=== PATIENT | male | born 1945 | race Caucasian/White ===

== ENCOUNTER → 2020-10-09 | Outpatient (CLI) | payer MEDICARE ==
[~2020-10-09] MED LIST: ECOTRIN81 MG PO; FLOMAX 0.4 MG0.4 MG PO; LISINOPRIL10 MG PO; LORTAB 5-325 M1 EACH PO; PANTOPRAZOLE SO40 MG PO; POTASSIUM CHLO20 ME1 PO; POTASSIUM CHLO20 ME2 PO; PROTONIX 40 MG40 M1 PO; QUETIAPINE FUM100 MG PO; SPIRIVA18 MCG INH; THERA-M CAPLET1 EAC1 PO; VITAMIN B1 PO
== END ==
LOC: CT 09:30 → KOH-I 10:14
DX: F17.210 Nicotine dependence, cigarettes, uncomplicated (principal); I71.2 Thoracic aortic aneurysm, without rupture
CPT/HCPCS: 71271

== ENCOUNTER 2020-11-10 19:00 | Inpatient (IN) | payer MEDICARE ==
[~2020-11-10] VITALS: Ht 182.9 cm; Wt 88.5 kg
[2020-11-10 19:41] LABS: HEMOGLOBIN 15.7 gm/dl (14.0-17.5); RED BLOOD COUNT 4.82 M/UL (4.20-5.50); WHITE BLOOD COUNT 27.4 K/UL (4.5-11.0)
[2020-11-10 19:59] LABS: BUN/CREATININE RATIO 23 (0-10)
[2020-11-11 07:12] LABS: RED BLOOD COUNT 4.38 M/UL (4.20-5.50); WHITE BLOOD COUNT 26.7 K/UL (4.5-11.0)
[2020-11-11 07:13] LABS: HEMOGLOBIN 13.2 gm/dl (14.0-17.5)
[2020-11-11 07:28] LABS: BUN/CREATININE RATIO 25 (0-10)
--- NOTE | 2020-11-11 10:48 | NUR ---
PT DIP AND FENTANYL STOPPED AT [address] STEVENS ORDER TO PREPARE FOR EXTUBATION. PT RESPONDED TO COMMANDS AND WAS VERBALLY AND PHYSICALLY APPROPRIATE WITH ORDERS. ABG WAS DRAWN BY RT. RESULTS WERE GOOD. PROCEEDED WITH BESIDE EXTUBATION AT 1030. PT TOLERATED WELL. SUCTIONED BY MOUTH. PATIENT A/O AND TALKING TO RT AND RN. OS NASAL CANNULA PLACED ON PATIENT AT 2 LITERS. PT O2 SAT WAS REMAINING AT 97%. ASSESSMENT WNL. WCTM.
--- NOTE | 2020-11-11 16:00 | NUR ---
REPORT CALLED TO [facility] ON PCU. PT HAS A BED AND IS TO BE TRANSFERRED TO [facility]– [place].
[2020-11-12 05:17] LABS: HEMOGLOBIN 14.1 gm/dl (14.0-17.5); RED BLOOD COUNT 4.46 M/UL (4.20-5.50); WHITE BLOOD COUNT 20.3 K/UL (4.5-11.0)
[2020-11-12 06:12] LABS: BUN/CREATININE RATIO 25 (0-10)
--- NOTE | 2020-11-12 15:41 | NUR ---
1000: PATIENT DEEP NT SUCTIONED PER DR. STEVENS REQUEST. NOT MUCH WAS SUCTIONED AND AND WEB GRAPHIC DESIGNER NOTIFIED. PATIENT EDUCATED ON SELF SUCTIONING AFTER BREAKING UP SECREATIONS AND COUGHING. PATIENT REFUSES TO DEEP BREATH, COUGH AND LET ME TURN HIM DUE TO PAIN IN THE ABDOMEN AND HE HAS BEEN EDUCATED ON THE EFFECTS AND POSSIBILITY OF PNEUMONIA. PATIENT UNDERSTANDS RISKS AND VERBALIZES UNDERSTANDING. I WILL CONTINUE TO EDUCATE PATIENT ON THE RISKS.
[2020-11-13 04:36] LABS: HEMOGLOBIN 13.3 gm/dl (14.0-17.5); RED BLOOD COUNT 4.4 M/UL (4.20-5.50); WHITE BLOOD COUNT 17.4 K/UL (4.5-11.0)
[2020-11-13 04:50] LABS: BUN/CREATININE RATIO 23 (0-10)
[2020-11-14 05:38] LABS: HEMOGLOBIN 12.6 gm/dl (14.0-17.5); RED BLOOD COUNT 4.02 M/UL (4.20-5.50); WHITE BLOOD COUNT 15.3 K/UL (4.5-11.0)
[2020-11-14 05:55] LABS: BUN/CREATININE RATIO 20 (0-10)
[2020-11-15 05:28] LABS: HEMOGLOBIN 12.8 gm/dl (14.0-17.5); RED BLOOD COUNT 4.03 M/UL (4.20-5.50); WHITE BLOOD COUNT 19.7 K/UL (4.5-11.0)
[2020-11-15 05:58] LABS: BUN/CREATININE RATIO 13 (0-10)
[2020-11-16 05:20] LABS: BUN/CREATININE RATIO 9 (0-10)
[2020-11-16 05:24] LABS: HEMOGLOBIN 12.8 gm/dl (14.0-17.5); RED BLOOD COUNT 4.05 M/UL (4.20-5.50); WHITE BLOOD COUNT 16.9 K/UL (4.5-11.0)
[2020-11-17 05:10] LABS: HEMOGLOBIN 11.9 gm/dl (14.0-17.5); RED BLOOD COUNT 3.81 M/UL (4.20-5.50); WHITE BLOOD COUNT 15.7 K/UL (4.5-11.0)
[2020-11-17 05:35] LABS: BUN/CREATININE RATIO 14 (0-10)
[2020-11-18 05:35] LABS: BUN/CREATININE RATIO 18 (0-10)
[2020-11-18 06:45] LABS: HEMOGLOBIN 11.8 gm/dl (14.0-17.5); RED BLOOD COUNT 3.74 M/UL (4.20-5.50); WHITE BLOOD COUNT 16.6 K/UL (4.5-11.0)
[2020-11-19 10:04] LABS: HEMOGLOBIN 12.4 gm/dl (14.0-17.5); RED BLOOD COUNT 3.93 M/UL (4.20-5.50); WHITE BLOOD COUNT 16.1 K/UL (4.5-11.0)
[2020-11-19 10:20] LABS: BUN/CREATININE RATIO 18 (0-10)
[2020-11-20 05:03] LABS: HEMOGLOBIN 12.5 gm/dl (14.0-17.5); RED BLOOD COUNT 3.99 M/UL (4.20-5.50); WHITE BLOOD COUNT 19.1 K/UL (4.5-11.0)
[2020-11-20 05:30] LABS: BUN/CREATININE RATIO 21 (0-10)
[2020-11-21 05:10] LABS: HEMOGLOBIN 12.1 gm/dl (14.0-17.5); RED BLOOD COUNT 3.83 M/UL (4.20-5.50); WHITE BLOOD COUNT 21.5 K/UL (4.5-11.0)
[2020-11-21 05:42] LABS: BUN/CREATININE RATIO 24 (0-10)
[2020-11-22 05:14] LABS: HEMOGLOBIN 11.3 gm/dl (14.0-17.5); RED BLOOD COUNT 3.64 M/UL (4.20-5.50); WHITE BLOOD COUNT 17.5 K/UL (4.5-11.0)
[2020-11-22 05:36] LABS: BUN/CREATININE RATIO 24 (0-10)
[2020-11-23 05:39] LABS: HEMOGLOBIN 11.7 gm/dl (14.0-17.5); RED BLOOD COUNT 3.74 M/UL (4.20-5.50); WHITE BLOOD COUNT 15.5 K/UL (4.5-11.0)
[2020-11-23 05:59] LABS: BUN/CREATININE RATIO 21 (0-10)
[2020-11-24 04:38] LABS: HEMOGLOBIN 11.1 gm/dl (14.0-17.5); RED BLOOD COUNT 3.56 M/UL (4.20-5.50)
[2020-11-24 05:04] LABS: BUN/CREATININE RATIO 22 (0-10)
[2020-11-25 04:06] LABS: HEMOGLOBIN 10.8 gm/dl (14.0-17.5); RED BLOOD COUNT 3.62 M/UL (4.20-5.50); WHITE BLOOD COUNT 15.1 K/UL (4.5-11.0)
[2020-11-25 04:29] LABS: BUN/CREATININE RATIO 20 (0-10)
[2020-11-27] MEDS ORDERED: HYDROCODON-ACE1 EAC4 PO (09:25)
[2020-11-27] MEDS ORDERED: LOPRESSOR 25 MG25 MG PO (09:25)
[2020-11-27] MEDS ORDERED: LISINOPRIL10 MG PO (09:25)
--- NOTE | 2020-11-27 23:16 | NUR ---
PT NOTED TO HAVE RUN OF SVT. BP 104/[address] SCHAEFFER NO NEW ORDERS NOTED. PT AWAKENS TO VOICE AND DENIES ANY CHEST PAIN OR DISCOMFORT.
[2020-11-28 03:01] LABS: HEMOGLOBIN 10.6 gm/dl (14.0-17.5); RED BLOOD COUNT 3.45 M/UL (4.20-5.50); WHITE BLOOD COUNT 13.9 K/UL (4.5-11.0)
[2020-11-28 03:22] LABS: BUN/CREATININE RATIO 16 (0-10)
--- NOTE | 2020-11-28 17:59 | NUR ---
PATIENT TRANSFER TO [facility]
[2020-11-29 05:31] LABS: BUN/CREATININE RATIO 17 (0-10)
[2020-11-30 05:17] LABS: HEMOGLOBIN 11.4 gm/dl (14.0-17.5); RED BLOOD COUNT 3.66 M/UL (4.20-5.50); WHITE BLOOD COUNT 10.8 K/UL (4.5-11.0)
[2020-11-30 05:49] LABS: BUN/CREATININE RATIO 17 (0-10)
--- NOTE | 2020-11-30 10:08 | NUR ---
PT ROOM AIR SAT 91%.
== END 2020-11-30 08:00 | DRG 853 ==
LOC: ER1 19:00 → CCU 21:56 → CDU 21:56 → CCU 11-11 04:31 → 2 EAST 11-11 10:50 → PROG CARE 11-11 16:31 → CCU 11-12 01:40 → 2 EAST 11-12 02:12 → CCU 11-12 17:33 → PROG CARE 11-23 16:08 → MED SURG 4 11-28 18:35
PROVIDERS: Internal Medicine; Internal Medicine Pulmonary Disease; Preventive Medicine Occupational Medicine; ADMIT Surgery
PROC: 0DN80ZZ Release Small Intestine, Open Approach (ICD-10-PCS; 2020-11-10)
PROC: 0DTJ0ZZ Resection of Appendix, Open Approach (ICD-10-PCS; principal; 2020-11-10 23:39)
PROC: B24BZZZ Ultrasonography of Heart with Aorta (ICD-10-PCS; 2020-11-13)
PROC: 0BC38ZZ Extirpation of Matter from Right Main Bronchus, Via Natural or Artificial Opening Endoscopic (ICD-10-PCS; 2020-11-13)
PROC: 0BH18EZ Insertion of Endotracheal Airway into Trachea, Via Natural or Artificial Opening Endoscopic (ICD-10-PCS; 2020-11-14)
PROC: 5A1945Z Respiratory Ventilation, 24-96 Consecutive Hours (ICD-10-PCS; 2020-11-14)
PROC: 02HV33Z Insertion of Infusion Device into Superior Vena Cava, Percutaneous Approach (ICD-10-PCS; 2020-11-14)
PROC: B548ZZA Ultrasonography of Superior Vena Cava, Guidance (ICD-10-PCS; 2020-11-14)
PROC: 3E0436Z Introduction of Nutritional Substance into Central Vein, Percutaneous Approach (ICD-10-PCS; 2020-11-14)
DX: A41.9 Sepsis, unspecified organism (principal); J96.01 Acute respiratory failure with hypoxia; T80.211A Bloodstream infection due to central venous catheter, initial encounter; J69.0 Pneumonitis due to inhalation of food and vomit; G93.41 Metabolic encephalopathy; K35.32 Acute appendicitis with perforation, localized peritonitis, and gangrene, without abscess; J98.11 Atelectasis; J98.19 Other pulmonary collapse; J90 Pleural effusion, not elsewhere classified; I47.1 Supraventricular tachycardia; T17.890A Other foreign object in other parts of respiratory tract causing asphyxiation, initial encounter; I48.92 Unspecified atrial flutter; N30.00 Acute cystitis without hematuria; K56.7 Ileus, unspecified; J44.1 Chronic obstructive pulmonary disease with (acute) exacerbation; Z20.822 Contact with and (suspected) exposure to COVID-19; E87.6 Hypokalemia; I10 Essential (primary) hypertension; E87.70 Fluid overload, unspecified; K21.9 Gastro-esophageal reflux disease without esophagitis; E86.0 Dehydration; I48.0 Paroxysmal atrial fibrillation; F17.210 Nicotine dependence, cigarettes, uncomplicated; K76.0 Fatty (change of) liver, not elsewhere classified; I08.1 Rheumatic disorders of both mitral and tricuspid valves; F10.10 Alcohol abuse, uncomplicated; I95.9 Hypotension, unspecified; Z85.038 Personal history of other malignant neoplasm of large intestine; Z79.4 Long term (current) use of insulin; Z98.890 Other specified postprocedural states; Z93.3 Colostomy status; Z90.89 Acquired absence of other organs; Z82.49 Family history of ischemic heart disease and other diseases of the circulatory system; Z79.01 Long term (current) use of anticoagulants; Z85.51 Personal history of malignant neoplasm of bladder
CPT/HCPCS: ECHO; 0240U; 31500; 36415; 36600; 71045; 74018; 80048; 80053; 80202; 81001; 82550; 82553; 82803; 82962; 83605; 83615; 83690; 83735; 83874; 83880; 84100; 84132; 84439; 84443; 84484; 85025; 85027; 85652; 86140; 87040; 87070; 87086; 87205; 92526; 92610; 93005; 93306; 94002; 94003; 94640; 94660; 94664; 94668; 94760; 96374; 96375; 97110-GP-CQ; 97116; 97116-GP-CQ; 97161; 97166; 97530; 97530-GP-CQ; 97535; 99285; C1751; C9113; J0330; J0696; J1100; J1205; J1650; J1940; J2001; J2185; J2250; J2270; J2405; J2543; J2704; J2710; J3010; J3370; J3480; J7030; J7070; J7120; Q9967

== ENCOUNTER → 2020-12-28 | Outpatient (CLI) | payer MEDICARE ==
[~2020-12-28] MED LIST changes: +HYDROCODON-ACE1 EAC4 PO; +LOPRESSOR 25 MG25 MG PO
== END ==
LOC: KOH-I 10:14
DX: R06.02 Shortness of breath (principal)
CPT/HCPCS: 71046

== ENCOUNTER → 2021-09-12 | Outpatient (CLI) | payer MEDICARE ==
[2021-09-12 12:00] LABS: ADENOVIRUS F 40/41 Not Detected (Negative); ASTROVIRUS Not Detected (Negative); CAMPYLOBACTER Not Detected (Negative); CRYPTOSPORIDIUM Not Detected (Negative); E.COLI 0157 Not Detected (Negative); ENTAMOEBA HISTOLYTICA Not Detected (Negative); ENTEROAGGREGATIVE E.COLI (EAEC Not Detected (Negative); ENTEROPATHOGENIC E.COLI (EPEC) Not Detected (Negative); ENTEROTOXIGENIC E.COLI (ETEC) Not Detected (Negative); GIARDIA LAMBLIA Not Detected (Negative); NOROVIRUS GI/GII Not Detected (Negative); PLESIOMONAS SHIGELLOIDES Not Detected (Negative); ROTOVIRUS A Not Detected (Negative); SALMONELLA Not Detected (Negative); SAPOVIRUS Not Detected (Negative); SHIG/ENTEROINVAS.ECOLI (EIEC) Not Detected (Negative); SHIGA-LIK TOX.PRO.E.COLI (STEC Not Detected (Negative); VIBRIO Not Detected (Negative); VIBRIO CHOLERAE Not Detected (Negative); YERSINIA ENTEROCOLITICA Not Detected (Negative)
[2021-09-12 12:06] LABS: HEMOGLOBIN 15.9 gm/dl (14.0-17.5); RED BLOOD COUNT 5.04 M/UL (4.20-5.50); WHITE BLOOD COUNT 23.6 K/UL (4.5-11.0)
[2021-09-12 12:21] LABS: BUN/CREATININE RATIO 23 (0-10)
[2021-09-12 15:21] LABS: CLOSTRIDIUM DIFFICILE TOX A/B Not Detected (Negative)
== END ==
LOC: LAB 10:44
PROVIDERS: Physician Assistant
DX: R19.7 Diarrhea, unspecified (principal); R11.0 Nausea
CPT/HCPCS: 36415; 80048; 85025; 87507

== ENCOUNTER → 2021-09-21 | Outpatient (CLI) | payer MEDICARE ==
[2021-09-21 10:10] LABS: HEMOGLOBIN 15.5 gm/dl (14.0-17.5); RED BLOOD COUNT 4.99 M/UL (4.20-5.50); WHITE BLOOD COUNT 13.8 K/UL (4.5-11.0)
== END ==
LOC: LAB 09:47
PROVIDERS: Physician Assistant
DX: D72.829 Elevated white blood cell count, unspecified (principal)
CPT/HCPCS: 36415; 85025

== ENCOUNTER → 2021-11-12 | Outpatient (CLI) | payer MEDICARE | LOC: KOH-I 13:44 | DX: F17.210 Nicotine dependence, cigarettes, uncomplicated (principal); R91.8 Other nonspecific abnormal finding of lung field; I71.2 Thoracic aortic aneurysm, without rupture | CPT/HCPCS: 71271 ==